=== PATIENT | female | born 1985 | race Caucasian/White ===

== ENCOUNTER 2024-05-16 11:01 | Emergency (ER) | payer OTHER, SELFPAY ==
--- NOTE | 2024-05-16 11:50 | ER ---
Nurse's Notes [facility] Name: Kelly Vega Age: 38 yrs Sex: Female : 1985 Arrival Date: 05/16/2024 Time: 11:01 Bed 16 Private MD: Diagnosis: Schizophrenia, unspecified Presentation: 05/16 11:10 Coronavirus screen: Client denies travel out of the [place] in the last 14 days. At this 1 time, the client does not indicate any symptoms associated with coronavirus-19. 11:10 Method Of Arrival: EMS: [facility] 11:21 Ebola Screen: Patient denies travel to an Ebola-affected area in the 21 days before 1 illness onset. Initial Sepsis Screen: Does the patient meet any 2 criteria? No. Patient's initial sepsis screen is negative. Does the patient have a suspected source of infection? No. Patient's initial sepsis screen is negative. 11:28 Chief complaint: Patient states: Dehydrated, no place to stay, got our of residential ll1 (November), SOB with exertion, fatigue off/on since November. Denies SI/HI, but states she sees and hears people that aren't there. Risk Assessment: Do you want to hurt yourself or someone else? Patient reports no desire to harm self or others. Onset of symptoms was November 24, 2023. 11:28 Acuity: SUSHILA 3 ll1 Triage Assessment: 11:22 General: Appears uncomfortable, Behavior is calm, cooperative, appropriate for age, ll1 Reports anxiety SOB after walking for an hour. Pain: Denies pain. Neuro: No deficits noted. Historical: - Allergies: 11:31 "psychotropic drugs"; ll1 - PMHx: 11:09 Hypertensive disorder; ll1 11:31 Seizure; Hypothyroidism; Migraine; ll1 - PSHx: 11:31 None; ll1 - Immunization history:: Adult Immunizations up to date. - Infectious Disease History:: Denies. - Social history:: Smoking status: Patient reports the use of cigarette tobacco products, denies chronic smoking, but will smoke occasionally, Reported history of juuling and/or vaping. Screenin:30 [facility] ED Fall Risk Assessment (Adult) History of falling in the last 3 months, db including since admission No falls in past 3 months (0 pts) Confusion or Disorientation No (0 pts) Intoxicated or Sedated No (0 pts) Impaired Gait No (0 pts) Mobility Assist Device Used No (0 pt) Altered Elimination No (0 pt) Score/Fall Risk Level 0 - 2 = Low Risk Oriented to surroundings, Maintained a safe environment. Abuse screen: Denies threats or abuse. Denies injuries from another. Nutritional screening: No deficits noted. Tuberculosis screening: No symptoms or risk factors identified. Assessment: 11:30 Reassessment: Patient appears in no apparent distress at this time. Patient and/or db family updated on plan of care and expected duration. Pain level reassessed. Patient is alert, oriented x 3, equal unlabored respirations, skin warm/dry/pink. General: Appears in no apparent distress. comfortable, Behavior is cooperative, agitated. Pain: Denies pain. Neuro: Level of Consciousness is awake, alert, obeys commands, Oriented to person, place, time, situation. Cardiovascular: No deficits noted. Respiratory: Airway is patent Respiratory effort is even, unlabored, Respiratory pattern is regular, symmetrical. GI: No deficits noted. No signs and/or symptoms were reported involving the gastrointestinal system. Vital Signs: 11:28 BP 142 / 69; Pulse 119; Resp 17; Temp 97.2; Pulse Ox 97% ; Weight 113.4 kg; Height 5 ll1 ft. 8 in. ; 11:28 Body Mass Index 38.01 (113.40 kg, 172.72 cm) ll1 ED Course: 11:03 Patient arrived in ED. im 11:05 Arm band placed on. ll1 11:07 [facility] sb[facility] 11:07 Sang Reece MD is Attending Physician. sb4 11:30 Patient has correct armband on for positive identification. Bed in low position. Call db light in reach. Side rails up X 1. Provided Education on: DISCHARGE. 11:30 No provider procedures requiring assistance completed. Patient did not have IV access db during this emergency room visit. 11:31 Triage completed. ll1 11:39 Patient placed in an exam room, on a stretcher. ll1 11:50 Pool Kearney MD is Referral Physician. sb4 Administered Medications: No medications were administered Medication: 11:30 VIS not applicable for this client. db Outcome: 11:50 Discharge ordered by MD. sherman 12:00 Discharged to home ambulatory, db 12:00 Condition: stable 12:00 Discharge instructions given to patient, Instructed on discharge instructions, follow up and referral plans. 12:08 Patient left the ED. Signatures: Karen Keane RN RN Ferdinand Sidhu RN RN ll1 Shonda Elliott RN RN db Radha Davis, PASerenaC PASerenaC sb4 Emily Pugh Corrections: (The following items were deleted from the chart) 11:41 11:28 Chief complaint: Patient states: Dehydrated, no place to stay, got our of residential ll1 (November), SOB with exertion, fatigue off/on since November ll1 13:05 11:30 Discharged to home ambulatory, db db 13:05 11:30 Condition: stable db db 13:05 11:30 Discharge instructions given to patient, Instructed on discharge instructions, db follow up and referral plans. db
--- NOTE | 2024-05-16 11:51 | EDPHYS ---
Physician Documentation [facility] Name: Kelly Vega Age: 38 yrs Sex: Female : 1985 Arrival Date: 05/16/2024 Time: 11:01 Bed 16 Private MD: ED Physician Sang Reece HPI: 05/16 11:48 This 38 yrs old Female presents to ER via EMS with complaints of psych problem. sb4 15:32 Patient presents via EMS with vague complaints. Apparently, patient was found wandering sb4 on someone's property. The home deputy assessor called PD and trespassing warning was given to her. She apparently appeared dehydrated and short of breath so they brought her in for evaluation. She is uncooperative, not answering my questions, experiencing auditory hallucinations during my assessment. She denies any suicidal or homicidal ideations. Historical: - Allergies: 11:31 "psychotropic drugs"; ll1 - PMHx: 11:09 Hypertensive disorder; ll1 11:31 Seizure; Hypothyroidism; Migraine; ll1 - PSHx: 11:31 None; ll1 - Immunization history:: Adult Immunizations up to date. - Infectious Disease History:: Denies. - Social history:: Smoking status: Patient reports the use of cigarette tobacco products, denies chronic smoking, but will smoke occasionally, Reported history of juuling and/or vaping. ROS: 15:32 Unable to obtain ROS due to patient being uncooperative, sb4 Exam: 15:32 Head/Face: Normocephalic, atraumatic. Eyes: Extra-ocular motions intact. Periorbital sb4 areas with no swelling, redness, or edema. ENT: Mucous membranes moist. 15:32 Constitutional: The patient appears in no acute distress, alert, awake, 15:32 Neuro: Gait: is steady, appropriate for age, 15:32 Psych: Behavior/mood is aggressive, Patient has no thoughts/intents to harm self or others. Judgement / Insight is impaired. Delusions/hallucinations are present and described as Speaking to a friend named "Gabriela "and saying "I am God ". Vital Signs: 11:28 BP 142 / 69; Pulse 119; Resp 17; Temp 97.2; Pulse Ox 97% ; Weight 113.4 kg; Height 5 ll1 ft. 8 in. ; 11:28 Body Mass Index 38.01 (113.40 kg, 172.72 cm) ll1 MDM: 11:07 Patient medically screened. sb4 15:34 Data reviewed: vital signs, nurses notes, and as a result, I will discharge patient. sb4 Counseling: I had a detailed discussion with the patient and/or guardian regarding the historical points, exam findings, and any diagnostic results supporting the discharge/admit diagnosis, to return to the emergency department if symptoms worsen or persist or if there are any questions or concerns that arise at home. Administered Medications: No medications were administered Disposition: 15:34 Chart complete. sb4 18:28 Co-signature as Attending Physician, Sang Reece MD I reviewed the patient's care rt provided by the Advanced Practice Provider and agree with the diagnosis and treatment plan. Disposition Summary: 05/16/24 11:50 Discharge Ordered Notes: Location: Home sb4 Problem: new sb4 Symptoms: are unchanged sb4 Condition: Stable sb4 Diagnosis - Schizophrenia, unspecified sb4 Followup: sb4 - With: Pool Kearney MD - When: As needed - Reason: Recheck today's complaints, Re-evaluation by your physician Discharge Instructions: - Discharge Summary Sheet sb4 - Managing Schizophrenia sb4 Forms: - Patient Portal Instructions sb4 - Leadership Thank You Letter sb4 Signatures: Ferdinand Sidhu RN RN ll1 Radha Davis PA-C PA-C sb4 Sang Reece MD MD rt
== END 2024-05-16 12:08 | disposition home or self-care (01) ==
LOC: ER 11:01
DX: F20.9 Schizophrenia, unspecified (principal)
CPT/HCPCS: 99283

== ENCOUNTER 2024-05-16 14:07 | Emergency (ER) | payer SELFPAY ==
[2024-05-16 15:44] LABS: Absolute Basophils 0.1 K/uL (0-0.5); Absolute Lymphocytes (CBC) 1.3 K/uL (0.7-4.9); Absolute Monocytes 1.1 K/uL (0.1-1.3); Absolute Neutrophil 10.2 K/uL (1.8-8.0); Basophils % 0.4 % (0-1.3); Eosinophils % 0.2 % (0-4.4); Hematocrit 50.7 % (36.0-45.0); Hemoglobin 16.6 g/dL (12.0-15.0); Lymphocytes % 10.5 % (15.3-44.8); MCH 29.7 pg (27.0-35.0); MCHC 32.7 g/dL (32.0-36.0); MCV 90.7 fL (80-100); MPV 8.8 fL (7.6-11.3); Monocytes % 8.5 % (3.3-12.3); Neutrophils % 80.4 % (41.7-73.7); Platelets 253 thou/uL (152-406); RBC Red Blood Cell Count 5.59 M/uL (3.86-4.86); Red Cell Distribution Width 14.2 % (12.1-15.2)
[2024-05-16 15:46] LABS: Specific Gravity > 1.030 (1.005-1.030); Urine Bacteria 20-50 /HPF (<20); Urine Bilirubin 1+ (Negative); Urine Blood Negative (Negative); Urine Clarity Extremely Turbid (Clear); Urine Color Yellow (Yellow); Urine Culture Reflex Order NOT NEEDED; Urine Glucose TRACE (Negative); Urine Ketones 2+ (Negative); Urine Microscopic Reflex YN ORDER UMIC; Urine Mucus 3+ /HPF (None Seen); Urine Nitrite NEGATIVE (Negative); Urine Protein 2+ (Negative); Urine RBC None Seen /HPF (None Seen); Urine Urobilinogen 1+ (Normal); Urine WBC None Seen /HPF (<5); Urine pH 5.5 (5.0-7.0)
[2024-05-16 15:47] LABS: Protime INR 1.09
[2024-05-16 15:47] LABS: Barbiturates POSITIVE (NEGATIVE); Benzodiazepines NEGATIVE (NEGATIVE); Cocaine NEGATIVE (NEGATIVE); METHAMPHETAM POSITIVE (NEGATIVE); Methadone NEGATIVE (NEGATIVE); Opiates NEGATIVE (NEGATIVE); Phencyclidine NEGATIVE (NEGATIVE); Specific Gravity > 1.030 (1.005-1.030); THC Cannibis POSITIVE (NEGATIVE)
[2024-05-16 15:48] LABS: ALT/SGPT 33 U/L (13-56); AST/SGOT 14 U/L (15-37); Albumin 4.4 g/dL (3.4-5.0); Alkaline Phosphatase 72 U/L (45-117); Anion Gap 13.8 mEq/L (5.0-15.0); BUN Blood Urea Nitrogen 16 mg/dL (7-18); Bicarbonate 24 mEq/L (21-32); Bilirubin Direct 0.3 mg/dL (0-0.2); Bilirubin Indirect, Calculated 0.6 mg/dL (0.2-0.8); Bilirubin Total 0.9 mg/dL (0.2-1.0); Globulin 4.2 g/dL (2.3-3.5); Glomerular Filtration Rate 39 ml/min (=/>90); Glucose Level 78 mg/dL (74-106); Potassium 3.8 mEq/L (3.5-5.1); Protein, Total 8.6 g/dL (6.4-8.2); Sodium Level 135 mEq/L (136-145)
[2024-05-16] MEDS ORDERED: CEPHALEXIN 250 MG CAP ONE (17:33)
--- NOTE | 2024-05-16 20:09 | ER ---
Nurse's Notes [facility] Name: Kelly Vega Age: 38 yrs Sex: Female : 1985 Arrival Date: 05/16/2024 Time: 14:07 Bed 20 Private MD: Diagnosis: Suicidal ideations;UTI/ Urinary tract infection, site not specified Presentation: 05/16 14:26 Chief complaint: Patient states: Abdominal pain and vaginal leaking for 4 days. Still ll1 has same symptoms of last visit this morning also; dehydration, SOB with exertion, fatigue, and being homeless. Hearing and seeing people that aren't there. Denies SI/HI. Coronavirus screen: Client denies travel out of the [place] in the last 14 days. At this time, the client does not indicate any symptoms associated with coronavirus-19. Ebola Screen: Patient denies travel to an Ebola-affected area in the 21 days before illness onset. Initial Sepsis Screen: Does the patient meet any 2 criteria? No. Patient's initial sepsis screen is negative. Does the patient have a suspected source of infection? No. Patient's initial sepsis screen is negative. Risk Assessment: Do you want to hurt yourself or someone else? Patient reports no desire to harm self or others. Onset of symptoms was May 02, 2024. 14:26 Method Of Arrival: Ambulatory [facility] 14:26 Acuity: SUSHILA 3 [facility] Triage Assessment: 14:32 General: Appears distressed, uncomfortable, Behavior is cooperative, appropriate for ll1 age, anxious. General: Reports seeing and hearing people that aren't there. Pain: Denies pain. Respiratory: Reports cough that is. : Reports cramping, vaginal "leaking". 14:54 GI: Reports lower abdominal pain, cramping. [facility] NEUROLOGY STROKE PHYSICIAN: 17:12 LMP N/A - , Not mb9 Historical: - Allergies: 14:28 "psychotropic drugs"; ll1 - PMHx: 14:28 Hypertensive disorder; Hypothyroidism; Migraine; Seizure; ll1 - Immunization history:: Adult Immunizations up to date. - Infectious Disease History:: Denies. - Social history:: Smoking status: Patient reports the use of cigarette tobacco products, denies chronic smoking, but will smoke occasionally, Reported history of juuling and/or vaping. - Family history:: not pertinent. Screenin:15 [facility] ED Fall Risk Assessment (Adult) History of falling in the last 3 months, kc6 including since admission No falls in past 3 months (0 pts) Confusion or Disorientation No (0 pts) Intoxicated or Sedated No (0 pts) Impaired Gait No (0 pts) Mobility Assist Device Used No (0 pt) Altered Elimination No (0 pt) Score/Fall Risk Level 0 - 2 = Low Risk. Abuse screen: Denies threats or abuse. Denies injuries from another. Nutritional screening: No deficits noted. Tuberculosis screening: No symptoms or risk factors identified. Assessment: 15:15 General: Appears in no apparent distress. comfortable, well groomed, well developed, kc6 Behavior is calm, cooperative, appropriate for age. Pain: Denies pain. Neuro: Level of Consciousness is awake, alert, obeys commands, Oriented to person, place, time, situation, Appropriate for age. Cardiovascular: Capillary refill < 3 seconds. Respiratory: Airway is patent Trachea midline Respiratory effort is even, unlabored, Respiratory pattern is regular, symmetrical. GI: No signs and/or symptoms were reported involving the gastrointestinal system. : No signs and/or symptoms were reported regarding the genitourinary system. EENT: No signs and/or symptoms were reported regarding the EENT system. Derm: No signs and/or symptoms reported regarding the dermatologic system. Skin is intact, is healthy with good turgor, Skin is pink, warm \\T\\ dry. Musculoskeletal: No signs and/or symptoms reported regarding the musculoskeletal system. Circulation, motion, and sensation intact. Capillary refill < 3 seconds, Range of motion: intact in all extremities. 15:15 Reassessment: pt states she is having auditory and visual hallucinations. pt states she kc6 is having SI, and that she has been using street drugs, taking pills, and drinking. pt denies HI. Dr. Reece and charge nurse notified. 15:15 Reassessment:. kc6 15:20 Reassessment: sitter remains at bedside. kc6 16:38 Reassessment: SI precautions in place. Sitter at bedside. Report received from jennifer Molina RN. 17:38 Reassessment: Patient appears in no apparent distress at this time. SI precautions in mb9 place. Sitter at bedside. 18:38 Reassessment: Patient appears in no apparent distress at this time. Patient is alert, mb9 oriented x 3, equal unlabored respirations, skin warm/dry/pink. SI precautions in place. Sitter at bedside. 19:38 Reassessment: Patient appears in no apparent distress at this time. Patient is alert, mb9 oriented x 3, equal unlabored respirations, skin warm/dry/pink. SI precautions in place. Sitter at bedside. Airway is patent, Respirations are even and unlabored. 20:38 Reassessment: Patient appears in no apparent distress at this time. SI precautions in mb9 place. Sitter at bedside. Airway is patent, Respirations are even and unlabored. 21:38 Reassessment: Patient appears in no apparent distress at this time. Patient is alert, mb9 oriented x 3, equal unlabored respirations, skin warm/dry/pink. SI precautions in place. Sitter at bedside. Airway is patent, Respirations are even and unlabored. 22:00 General: Appears comfortable, Behavior is calm, cooperative. Neuro: Level of ha1 Consciousness is awake, alert, obeys commands, Oriented to person, place, time, situation, Reports Suicidal ideations . Cardiovascular: Patient's skin is warm and dry. Respiratory: Airway is patent Respiratory effort is even, unlabored, Respiratory pattern is regular, symmetrical. 22:15 Reassessment: eyes closed. Respiratory: Airway is patent Respiratory effort is even, ha1 unlabored, Respiratory pattern is regular, symmetrical. 23:34 Reassessment: eyes closed. Respiratory: Airway is patent Respiratory effort is even, ha1 unlabored, Respiratory pattern is regular, symmetrical. 05/17 01:03 Reassessment: Patient and/or family updated on plan of care and expected duration. Pain ha1 level reassessed. Patient is alert, oriented x 3, equal unlabored respirations, skin warm/dry/pink. 02:00 Reassessment: eyes closed. Respiratory: Airway is patent Respiratory effort is even, ha1 unlabored, Respiratory pattern is regular, symmetrical. 04:00 Reassessment: eyes closed. Respiratory: Airway is patent Respiratory effort is even, ha1 unlabored, Respiratory pattern is regular, symmetrical. 06:00 Reassessment: eyes closed. Respiratory: Airway is patent Respiratory effort is even, ha1 unlabored, Respiratory pattern is regular, symmetrical. 07:37 Reassessment: Pt asleep w/ even and unlabored respirations, nurse to nurse report given ph to Lottie at [facility]. 08:53 Reassessment: Patient appears in no apparent distress at this time. Patient and/or ph family updated on plan of care and expected duration. Pain level reassessed. Patient is alert, oriented x 3, equal unlabored respirations, skin warm/dry/pink. [facility] at bedside. Psych: 05/16 15:15 [place] Suicide Severity Screening: In the past month, have you wished you were kc6 or wished you could go to sleep and not wake up? Patient responds "yes." Based off the client's responses additional C-SSRS screening is required. "In the past month, have you actually had any thoughts of killing yourself?" Patient responds "yes." Based off the client's response additional [place] suicide severity screening questions to be further documented on paper forms. "In your lifetime, have you ever done anything, started to do anything, or prepared to do anything to end your life?" Patient responds "yes." Patient reports suicidal intent within 3 past months. Subjective: Delusions are denied. Subjective: Patient's mood is angry, Hallucinations are auditory, visual, Having thoughts of suicide. Plan for suicide is taking pills, doing street drugs, and drinking. Objective: Patient is irritable, using poor eye contact, Speech is normal, Affect is flat. Interventions: Removed personal items and placed in bag. Searched person for dangerous items. Urine collected and sent for urine drug test. Belonging list filled out. Patient uses Patient uses marijuana Patient uses methamphetamines. Commitment: Patient will be a voluntary commitment. 16:30 Safety Checks: Personal items have been removed. Door is open. SI precautions in place. mb9 Sitter at bedside. Vital Signs: 14:26 BP 115 / 81; Pulse 122; Resp 18; Temp 97.5; Pulse Ox 98% ; Weight 113.4 kg; Height 5 ll1 ft. 8 in. ; Pain 0/10; 15:15 Pulse 105; kc6 22:15 BP 116 / 82; Pulse 95; Resp 17 S; Pulse Ox 97% on R/A; ha1 05/17 09:00 BP 115 / 78; Pulse 90; Resp 20; Temp 98.1; Pulse Ox 98% ; Pain 0/10; kb3 06/23 14:26 Body Mass Index 38.01 (113.40 kg, 172.72 cm) ll1 05/16 14:26 Pain Scale: Adult ll1 05/17 09:00 Pain Scale: Adult kb3 ED Course: 05/16 14:12 Patient arrived in ED. im 14:28 Triage completed. ll1 14:29 Arm band placed on Patient placed in an exam room, on a stretcher. ll1 14:34 Sang Reece MD is Attending Physician. rt 15:15 Patient has correct armband on for positive identification. Bed in low position. Call kc6 light in reach. Side rails up X2. Valuables inventory done. Locked in safe. See valuables checklist. Door closed. Noise minimized. Visitors limited. Lights dimmed. Warm blanket given. Pillow given. Patient is placed in psych hold. 15:15 Initial lab(s) drawn, by me, sent to lab. Inserted saline lock: 20 gauge in left zm antecubital area, using aseptic technique. Blood collected. 15:15 Acetaminophen Sent. zm 15:15 Basic Metabolic Panel Sent. zm 15:15 CBC with Diff Sent. zm 15:15 ETOH Level Sent. zm 15:15 Hepatic Function Sent. zm 15:15 PT-INR Sent. zm 15:15 Test, Urine Sent. zm 15:15 Ptt, Activated Sent. zm 15:15 Salicylate Sent. zm 15:20 Safety Checks: The door is open or patient has been placed in a hallway bed/chair. kc6 Items have not been removed from patient due to or because: PT IS IN A TRAUMA ROOM. There are no family/friend visitors at this time Sitter present at this time. 15:49 Tracy Hodges, RN is Primary Nurse. kc6 16:50 Report given to Angy Raman RN. kc6 17:11 No provider procedures requiring assistance completed. mb9 17:12 Provided Education on: ER process and need for a sitter present. jennifer 17:15 called [facility] for evaluation of pt. sp 17:16 talked to Sasha with [facility]. sp 22:00 Report given to JOHN Sandra. jennifer 23:04 spoke with otf \\Shanta\\ don psych. will fax exclusionary form and mar. kmf 05/17 01:00 Door closed. Noise minimized. Lights dimmed. Warm blanket given. ha1 08:55 IV discontinued, intact, bleeding controlled, No redness/swelling at site. kb3 Administered Medications: 05/16 17:37 Drug: Cephalexin PO 500 mg PO once Route: PO; mb9 05/17 00:56 Drug: Cephalexin PO 500 mg PO every 6 hours Route: PO; ha1 Medication: 05/16 17:12 VIS not applicable for this client. mb9 Outcome: 20:08 ER care complete, transfer ordered by . rt 05/17 08:53 Transferred by ground EMS [facility]. Transfer form completed. Note: to [facility] Behavior[facility] Condition: good 09:03 Patient left the ED. ph Signatures: Mercy Amado Patricia RN RN ph Ferdinand Sidhu RN RN ll1 Jyothi De La Cruz Heidy, RN RN ha1 Tracy Hodges RN RN kc6 Gertrudis Elena RN RN kb3 Ara Saldaña RN RN mb9 Sang Reece MD MD rt Emily Pugh Kelsey [facility] Corrections: (The following items were deleted from the chart) 05/16 14:30 14:26 Chief complaint: Patient states: Chest hurting, coughing for 2 weeks. Pain and ll1 vaginal leaking for 4 days. Still has same symptoms of last visit this morning also. ll1 14:32 14:26 Chief complaint: Patient states: Chest hurting, coughing for 2 weeks. Pain and ll1 vaginal leaking for 4 days. Still has same symptoms of last visit this morning also. Hearing and seeing people that aren't there. Denies SI/HI ll1 14:54 14:32 Respiratory: Reports cough that is ll1 ll1 14:57 14:26 Chief complaint: Patient states: Abdominal pain and vaginal leaking for 4 days. ll1 Still has same symptoms of last visit this morning also. Hearing and seeing people that aren't there. Denies SI/HI ll1 15:55 15:15 Reassessment: pt states she is having auditory and visual hallucinations. pt kc6 states she is having SI, and that she has been using street drugs, taking pills, and drinking. pt denies HI. Dr. Reece and charge nurse notified kc6 16:17 15:20 Reassessment: FOR SAFETY REASONS, PT WILL BE MOVED TO AN APPROPRIATE ROOM WHEN kc6 ONE BECOMES AVAILABLE. kc6 18:36 16:38 Reassessment: SI precautions in place. Sitter at bedside. mb9 mb9
--- NOTE | 2024-05-16 20:09 | EDPHYS ---
Physician Documentation [facility] Name: Kelly Vega Age: 38 yrs Sex: Female : 1985 Arrival Date: 05/16/2024 Time: 14:07 Bed 20 Private MD: ED Physician Sang Reece HPI: 05/16 17:32 This 38 yrs old Female presents to ER via Ambulatory with complaints of Psych Problem. rt 17:32 Patient was seen in the ED earlier today, refused to speak to PA, subsequently rt discharged. Patient returns to the ED, she was stated that she could not walk, but, she did not mention this to me. Patient was walking into the hospital. Patient states that she sees ghosts, reported to her nurse that she had thoughts of hurting herself. Patient reports of burning with urination. Denies other acute complaints at this time, symptoms are moderate in severity, no other aggravating or alleviating factors.. 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 - Infectious Disease History:: Denies. - Social history:: Smoking status: Patient reports the use of cigarette tobacco products, denies chronic smoking, but will smoke occasionally, Reported history of juuling and/or vaping. - Family history:: not pertinent. ROS: 17:32 Constitutional: Negative for fever, chills, and weight loss, Cardiovascular: Negative rt for chest pain, palpitations, and edema, Respiratory: Negative for shortness of breath, cough, wheezing, and pleuritic chest pain, Abdomen/GI: Negative for abdominal pain, nausea, vomiting, diarrhea, and constipation, Skin: Negative for injury, rash, and discoloration, Neuro: Negative for headache, weakness, numbness, tingling, and seizure, 17:32 : Positive for burning with urination, Negative for vaginal bleeding, 17:32 Psych: Positive for visual hallucinations, suicidal ideation, Exam: 17:32 Constitutional: This is a well developed, well nourished patient who is awake, alert, rt and in no acute distress. Head/Face: Normocephalic, atraumatic. Chest/axilla: Normal chest wall appearance and motion. Nontender with no deformity. No lesions are appreciated. Cardiovascular: Regular rate and rhythm with a normal S1 and S2. No gallops, murmurs, or rubs. Normal PMI, no JVD. No pulse deficits. Respiratory: Lungs have equal breath sounds bilaterally, clear to auscultation and percussion. No rales, rhonchi or wheezes noted. No increased work of breathing, no retractions or nasal flaring. Abdomen/GI: Soft, non-tender, with normal bowel sounds. No distension or tympany. No guarding or rebound. No evidence of tenderness throughout. Skin: Warm, dry with normal turgor. Normal color with no rashes, no lesions, and no evidence of cellulitis. MS/ Extremity: Pulses equal, no cyanosis. Neurovascular intact. Full, normal range of motion. Neuro: Awake and alert, GCS 15, oriented to person, place, time, and situation. Cranial nerves II-XII grossly intact. Motor strength 5/5 in all extremities. Sensory grossly intact. Cerebellar exam normal. Normal gait. 17:32 ECG was reviewed by the Attending Physician. 17:32 Psych: Disorganized, appears to be responding to internal stimuli, reported suicidal ideation. Vital Signs: 14:26 BP 115 / 81; Pulse 122; Resp 18; Temp 97.5; Pulse Ox 98% ; Weight 113.4 kg; Height 5 ll1 ft. 8 in. ; Pain 0/10; 15:15 Pulse 105; kc6 22:15 BP 116 / 82; Pulse 95; Resp 17 S; Pulse Ox 97% on R/A; ha1 05/17 09:00 BP 115 / 78; Pulse 90; Resp 20; Temp 98.1; Pulse Ox 98% ; Pain 0/10; kb3 05/16 14:26 Body Mass Index 38.01 (113.40 kg, 172.72 cm) ll1 05/16 14:26 Pain Scale: Adult ll1 05/17 09:00 Pain Scale: Adult kb3 MDM: 05/16 14:52 Patient medically screened. rt 20:09 Differential diagnosis: Acute psychosis, suicidal ideation, UTI. Data reviewed: vital rt signs, nurses notes, lab test result(s), EKG. Consideration of Admission/Observation Escalation of care including admission/observation considered. Patient requires transfer for psychiatric stabilization. Patient was noted with elevated creatinine, likely due to dehydration with methamphetamine use. Is amenable to p.o. hydration. Patient does not require admission to the hospital for this.. Management of patient was discussed with the following: Behavioral Health Provider: Recommends inpatient hospitalization. I considered the following discharge prescriptions or medication management in the emergency department Medications were administered in the Emergency Department. See MAR. Care significantly affected by the following chronic conditions: Schizophrenia. Counseling: I had a detailed discussion with the patient and/or guardian regarding the historical points, exam findings, and any diagnostic results supporting the discharge/admit diagnosis, lab results, the need to transfer to another facility. Response to treatment: There is no appreciated change of the patient's symptoms at this time. 05/16 15:01 Order name: Acetaminophen; Complete Time: 16:18 rt 05/16 15:01 Order name: Basic Metabolic Panel; Complete Time: 16:18 rt 05/16 15:01 Order name: CBC with Diff; Complete Time: 16:18 rt 05/16 15:01 Order name: ETOH Level; Complete Time: 16:18 rt 05/16 15:01 Order name: Hepatic Function; Complete Time: 16:18 rt 05/16 15:01 Order name: PT-INR; Complete Time: 16:18 rt 05/16 15:01 Order name: Test, Urine; Complete Time: 16:18 rt 05/16 15:01 Order name: Ptt, Activated; Complete Time: 16:18 rt 05/16 15:01 Order name: Salicylate; Complete Time: 16:18 rt 05/16 15:01 Order name: Urinalysis w/ reflexes; Complete Time: 16:18 rt 05/16 15:01 Order name: Urine Drug Screen; Complete Time: 16:18 rt 05/16 15:01 Order name: EKG; Complete Time: 15: rt 05/16 15:01 Order name: IV Saline Lock; Complete Time: 15:14 rt 05/16 15:01 Order name: Labs collected and sent; Complete Time: 15:14 rt 05/16 15:01 Order name: Suicide Screening ([place]); Complete Time: 15:14 rt 05/16 15:01 Order name: EKG - Nurse/Tech; Complete Time: 15:14 rt EC:32 Rate is 102 beats/min. Rhythm is regular, Sinus tachycardia with No ectopy. QRS [place] is rt Normal. CA interval is normal. QRS interval is normal. QT interval is normal. T waves are Normal. No ST changes noted. Interpreted by me. Administered Medications: 17:37 Drug: Cephalexin PO 500 mg PO once Route: PO; mb9 05/17 00:56 Drug: Cephalexin PO 500 mg PO every 6 hours Route: PO; ha1 Disposition Summary: 05/16/24 20:08 Transfer Ordered Notes: Transfer Location: Psych Facility rt Reason: Specialty rt Condition: Stable rt Problem: new rt Symptoms: are unchanged rt Accepting Physician: (05/17/24 09:03) ph Diagnosis - Suicidal ideations rt - UTI/ Urinary tract infection, site not specified rt Discharge Instructions: - Discharge Summary Sheet kmf Forms: - Medication Reconciliation Form rt - SBAR form kmf Signatures: Dispatcher [employer] EDMariah Lassiter RN RN ph Lewis, Lynsay RN RN 1 Jocy Sampson RN RN [facility] Ara Saldaña RN RN [id number] Sang Reece MD MD rt Corrections: (The following items were deleted from the chart) 05/16 15:01 15:01 ACETAMINOPHEN+C.LAB.BRZ ordered. EDMS EDMS 15:01 15:01 BASIC METABOLIC PANEL+C.LAB.BRZ ordered. EDMS EDMS 15:01 15:01 CBC+H.LAB.BRZ ordered. EDMS EDMS 15:01 15:01 ETHANOL+C.LAB.BRZ ordered. EDMS EDMS 15:01 15:01 HEPATIC FUNCTION+C.LAB.BRZ ordered. EDMS EDMS 15:01 15:01 PROTIME (+INR)+COAG.LAB.BRZ ordered. EDMS EDMS 15:01 15:01 Test, Urine+UC.LAB.BRZ ordered. EDMS EDMS 15:01 15:01 PTT, ACTIVATED+COAG.LAB.BRZ ordered. EDMS EDMS 15:01 15:01 SALICYLATE+C.LAB.BRZ ordered. EDMS EDMS 15:01 15:01 Urinalysis+U.LAB.BRZ ordered. EDMS EDMS 15:01 15:01 URINE DRUG SCREEN+UC.LAB.BRZ ordered. EDMS EDMS 20:08 20:08 . rt rt 05/17 09:03 05/16 20:08 Dr. rt ph
[2024-05-17] MEDS ORDERED: CEPHALEXIN 250 MG CAP ONE (00:50)
--- NOTE | 2024-05-17 13:05 | EKG ---
Test Date: 2024-05-16 Test Time: 15:11:40 Disc Recordist: NAYA MEASUREMENT RESULTS: Intervals: Rate: 102 WA: 164 QRSD: 72 QT: 350 QTc: 456 [place]: P: 60 WA: 164 QRS: 53 T: 27 INTERPRETIVE STATEMENTS: Sinus tachycardia Otherwise normal ECG Compared to ECG 04/16/2008 09:21:26 Sinus rhythm no longer present Prolonged QT interval no longer present Electronically Signed On 05-17-24 13:03:02 CDT by Anson Mak
[2024-05-17 17:49] VITALS: BP 116/82; TEMP 97.5; O2SAT 97
== END 2024-05-17 09:03 ==
LOC: ER 14:07
DX: R45.851 Suicidal ideations (principal); N39.0 Urinary tract infection, site not specified
CPT/HCPCS: 36415; 80048; 80076; 80143; 80179; 80307; 81001; 81025; 82077; 85025; 85610; 85730; 93005

== ENCOUNTER 2024-12-05 07:09 | Emergency (ER) | payer OTHER, SELFPAY ==
[2024-12-05] MEDS ORDERED: NA CHLORIDE 0.9% 500 ML ONE (07:45)
[2024-12-05 08:00] LABS: Absolute Basophils 0.1 K/uL (0-0.5); Absolute Lymphocytes (CBC) 1.5 K/uL (0.7-4.9); Absolute Monocytes 1.2 K/uL (0.1-1.3); Absolute Neutrophil 4.4 K/uL (1.8-8.0); Basophils % 0.9 % (0-1.3); Eosinophils % 0.3 % (0-4.4); Hematocrit 41.6 % (36.0-45.0); Hemoglobin 13.8 g/dL (12.0-15.0); Lymphocytes % 21.1 % (15.3-44.8); MCH 29.8 pg (27.0-35.0); MCHC 33.2 g/dL (32.0-36.0); MCV 89.8 fL (80-100); Monocytes % 17.1 % (3.3-12.3); Neutrophils % 60.6 % (41.7-73.7); Nucleated Red Blood Cells % 0.1 % (0-0); Platelets 256 thou/uL (152-406); RBC Red Blood Cell Count 4.63 M/uL (3.86-4.86); Red Cell Distribution Width 13.1 % (12.1-15.2)
--- NOTE | 2024-12-05 08:09 | ER ---
Nurse's Notes [facility] Name: Kelly Vega Age: 39 yrs Sex: Female : 1985 Arrival Date: 12/05/2024 Time: 07:09 Bed 18 Private MD: Diagnosis: Suicidal ideations Presentation: 12/05 07:09 Chief complaint: EMS states: PT REPORTS TAKING A HAND 20 PILLS YESTERDAY OF A MIX OF db HER MEDICATIONS. TODAY FEELS OUT OF BODY. MEDICATIONS THAT REMEMBERS ARE AMOXICILLIN, COGENTIN, IBUPROFEN, TOPOMAX. HAVING THOUGHTS OF HURTING SELF BECAUSE WAS FRUSTRATED WITH TAKING HOME MEDS. FEELING SAD AND OVERWHELMED. WANTS HELP AND WANTS TO GO TO A FACILITY TODAY FOR HELP. 07:38 Coronavirus screen: Client denies travel out of the [place] in the last 14 days. At this db time, the client does not indicate any symptoms associated with coronavirus-19. Ebola Screen: Patient negative for fever greater than or equal to 101.5 degrees Fahrenheit, and additional compatible Ebola Virus Disease symptoms Patient denies exposure to infectious person. Patient denies travel to an Ebola-affected area in the 21 days before illness onset. No symptoms or risks identified at this time. Initial Sepsis Screen: Does the patient meet any 2 criteria? No. Patient's initial sepsis screen is negative. Does the patient have a suspected source of infection? No. Patient's initial sepsis screen is negative. Risk Assessment: Do you want to hurt yourself or someone else? Patient reports no desire to harm self or others. Onset of symptoms was December 04, 2024. 07:38 Method Of Arrival: EMS: [facility] db 07:38 Acuity: SUSHILA 2 db Triage Assessment: 07:09 General: Appears in no apparent distress. comfortable, Behavior is calm, cooperative. db Pain: Denies pain. Neuro: Level of Consciousness is awake, alert, obeys commands, Oriented to person, place, time, situation. Respiratory: Airway is patent Respiratory effort is even, unlabored, Respiratory pattern is regular, symmetrical. Historical: - Allergies: 07:42 Seroquel; db 07:42 Haldol; db 07:42 Depakote; db 07:42 Soma; db - PMHx: 07:42 Hypertensive disorder; Hypothyroidism; Migraine; Seizure; db - Immunization history:: Adult Immunizations unknown. - Infectious Disease History:: Denies. - Family history:: not pertinent. - Social history:: Smoking status: Patient reports the use of cigarette tobacco products, denies chronic smoking, but will smoke occasionally, Reported history of juuling and/or vaping. - Hospitalizations: : No recent hospitalization is reported. Screenin:58 [facility] ED Fall Risk Assessment (Adult) History of falling in the last 3 months, db including since admission No falls in past 3 months (0 pts) Confusion or Disorientation No (0 pts) Intoxicated or Sedated No (0 pts) Impaired Gait No (0 pts) Mobility Assist Device Used No (0 pt) Altered Elimination No (0 pt) Score/Fall Risk Level 0 - 2 = Low Risk Oriented to surroundings, Maintained a safe environment. Abuse screen: Denies threats or abuse. Denies injuries from another. Nutritional screening: No deficits noted. Tuberculosis screening: No symptoms or risk factors identified. Assessment: 07:57 Reassessment: Patient appears in no apparent distress at this time. Patient and/or db family updated on plan of care and expected duration. Pain level reassessed. Patient is alert, oriented x 3, equal unlabored respirations, skin warm/dry/pink. PATIENT AMBULATORY TO RESTROOM. 09:53 Reassessment: [place] [facility] [place] db 10:53 Reassessment: Patient appears in no apparent distress at this time. EMS ARRIVAL FOR db PATIENT TRANSPORT. SECURITY NOTIFIED TO BRING BACK PATIENT BELONGINGS. 10:53 Reassessment: Patient appears in no apparent distress at this time. db Psych: 07:10 [place] Suicide Severity Screening: In the past month, have you wished you were db or wished you could go to sleep and not wake up? Patient responds "yes." Based off the client's responses additional C-SSRS screening is required. "In the past month, have you actually had any thoughts of killing yourself?" Patient responds "yes." Based off the client's response additional [place] suicide severity screening questions to be further documented on paper forms. "In your lifetime, have you ever done anything, started to do anything, or prepared to do anything to end your life?" Patient responds "yes." Patient reports suicidal intent occurred greater than 3 months prior. Subjective: Patient's mood is sad. Subjective: Delusions are denied, Hallucinations are denied. Objective: Patient is cooperative, Speech is normal, Affect is appropriate. Interventions: Removed personal items and placed in bag. Patient placed in hospital gown. Searched person for dangerous items. Urine collected and sent for urine drug test. Belonging list filled out. Safety Checks: Personal items have been removed. Door is open. No visitors are present at this time. Pt denies substance abuse. Commitment: Patient will be a voluntary commitment. Vital Signs: 07:38 BP 119 / 78; Pulse 112; Resp 18; Temp 99.6; Pulse Ox 95% ; Weight 115.67 kg; Height 5 db ft. 8 in. ; 08:00 BP 118 / 85; Pulse 102; Resp 18; Pulse Ox 96% on R/A; db 09:00 BP 127 / 96; Pulse 93; Resp 20; Temp 98.8; Pulse Ox 96% on R/A; db 10:30 BP 103 / 70; Pulse 95; Resp 18; Pulse Ox 98% on R/A; db 07:38 Body Mass Index 38.77 (115.67 kg, 172.72 cm) db ED Course: 07:09 Arm band placed on Patient placed in an exam room. db 07:10 Patient arrived in ED. am2 07:11 Hitesh Bee MD is Attending Physician. rn 07:21 Shonda Elliott, JOHN is Primary Nurse. db 07:42 Triage completed. db 08:24 XRAY Chest (1 view) In Process Unspecified. EDMS 08:26 Patient has correct armband on for positive identification. Bed in low position. Call db light in reach. Side rails up X 1. Client placed on continuous cardiac and pulse oximetry monitoring. NIBP monitoring applied. quality assurance monitor chassis on. Pulse ox on. NIBP on. Warm blanket given. Pillow given. 08:27 Initial lab(s) drawn, by me, sent to lab. Urine collected: clean catch specimen, EKG cc6 done, by ED staff, reviewed by Hitesh Bee MD. Inserted saline lock: 20 gauge in right antecubital area, using aseptic technique. Blood collected. Flushed with 10 mL NS. 09:44 faxed demographics to [facility], [place]o [place]. sp 10:45 [facility] gave approval and nurse to nurse to Tanisha. [facility]. Greyson Strickland [id number] Called [facility] for transport talked to Anna. 10:53 Provided Education on: TRANSPORTATION TO [facility]. Patient is placed in psych db hold. 10:53 No provider procedures requiring assistance completed. IV discontinued, intact, db bleeding controlled, No redness/swelling at site. Administered Medications: 07:50 Drug: NS 0.9% IV 500 ml 500 ml IV at 1 bolus once; to be given as a bolus over 30 db minutes Volume: 500 ml; Route: IV; Rate: 1 bolus; Site: right antecubital; 08:17 Drug: Acetaminophen PO 650 mg PO once Route: PO; db 09:52 Follow up: Response: No adverse reaction db 09:38 Drug: Potassium Chloride PO 40 mEq PO once Route: PO; db Medication: 08:26 VIS not applicable for this client. db Outcome: 08:09 Discharge ordered by MD. rn 08:10 ER care complete, transfer ordered by MD. rn 10:53 Transferred by ground EMS Transfer form completed. X-rays sent w/ patient. Note: [facility] 10:53 Condition: stable 10:53 Instructed on the need for transfer, 11:14 Patient left the ED. iw Signatures: Dispatcher [employer] EDMS Mercy Amado Irene, RN RN iw Hitesh Bee MD MD rn Moreno, Amanda am2 Shonda Elliott RN RN db Miryam Hamilton cc6 Corrections: (The following items were deleted from the chart) 07:42 07:09 Chief complaint: EMS states: PT REPORTS TAKING A HAND 20 PILLS YESTERDAY OF A MIX db OF HER MEDICATIONS. db 09:59 09:00 BP 127 / 96; Pulse 93bpm; Resp 20bpm; Pulse Ox 96% RA; db db
--- NOTE | 2024-12-05 08:10 | EDPHYS ---
Physician Documentation [facility] Name: Kelly Vega Age: 39 yrs Sex: Female : 1985 Arrival Date: 12/05/2024 Time: 07:09 Bed 18 Private MD: ED Physician Hitesh Bee HPI: 12/05 07:31 This 39 yrs old Female presents to ER via Unassigned with complaints of Suicidal rn Ideation. 07:31 The patient presents to the emergency department with depression, over unknown rn circumstances, a history of a suicide gesture, where the patient took pills/medications, suicide ideation, and the patient has a plan. Onset: The symptoms/episode began/occurred at an unknown time. Severity of symptoms: At their worst the symptoms were moderate in the emergency department the symptoms are unchanged. The patient has experienced similar episodes in the past. Patient reports suicidal ideation and depression. Reports suicide attempts in the past. Took approximately 20 pills, her medication including antibiotics, Topamax, Cogentin. Patient does not know the amount or doses of each pill. Took them yesterday morning/afternoon.. Historical: - Allergies: 07:42 Seroquel; db 07:42 Haldol; db 07:42 Depakote; db 07:42 Soma; db - PMHx: 07:42 Hypertensive disorder; Hypothyroidism; Migraine; Seizure; db - Immunization history:: Adult Immunizations unknown. - Infectious Disease History:: Denies. - Family history:: not pertinent. - Social history:: Smoking status: Patient reports the use of cigarette tobacco products, denies chronic smoking, but will smoke occasionally, Reported history of juuling and/or vaping. - Hospitalizations: : No recent hospitalization is reported. ROS: 07:31 Constitutional: Negative for fever, chills, and weight loss, Cardiovascular: Negative rn for chest pain, palpitations, and edema, Respiratory: Negative for shortness of breath, cough, wheezing, and pleuritic chest pain, Abdomen/GI: Negative for abdominal pain, nausea, vomiting, diarrhea, and constipation, MS/Extremity: Negative for injury and deformity, Skin: Negative for injury, rash, and discoloration, Neuro: Negative for headache, weakness, numbness, tingling, and seizure, Exam: 07:31 Constitutional: This is a well developed, well nourished patient who is awake, alert, rn and in no acute distress. ENT: Dry mucous membranes Cardiovascular: Tachycardic, regular. No pulse deficits. Respiratory: No increased work of breathing, no retractions or nasal flaring. Abdomen/GI: Soft, non-tender MS/ Extremity: Pulses equal, no cyanosis. Neuro: Awake and alert, GCS 15 09:16 ECG was reviewed by the Attending Physician. rn Vital Signs: 07:38 BP 119 / 78; Pulse 112; Resp 18; Temp 99.6; Pulse Ox 95% ; Weight 115.67 kg; Height 5 db ft. 8 in. ; 08:00 BP 118 / 85; Pulse 102; Resp 18; Pulse Ox 96% on R/A; db 09:00 BP 127 / 96; Pulse 93; Resp 20; Temp 98.8; Pulse Ox 96% on R/A; db 10:30 BP 103 / 70; Pulse 95; Resp 18; Pulse Ox 98% on R/A; db 07:38 Body Mass Index 38.77 (115.67 kg, 172.72 cm) db MDM: 07:11 Medical Screening Exam initiated rn 07:37 Differential diagnosis: depression, Suicidal ideation. Data reviewed: vital signs, rn nurses notes. 08:08 Independent interpretation of the following test(s) in the Emergency Department X-Ray: rn My interpretation is Chest x-ray images negative for pneumonia or pneumothorax per my interpretation. Care significantly affected by the following chronic conditions: Hypertension. Counseling: I had a detailed discussion with the patient and/or guardian regarding the historical points, exam findings, and any diagnostic results supporting the discharge/admit diagnosis, lab results, radiology results, the need for outpatient follow up, to return to the emergency department if symptoms worsen or persist or if there are any questions or concerns that arise at home. Special discussion:. 08:08 ED course: Patient is voluntary for psychiatric transfer.. rn 12/05 07:18 Order name: Acetaminophen; Complete Time: 08: rn 12/05 07:18 Order name: Basic Metabolic Panel; Complete Time: : rn 12/05 07:18 Order name: CBC with Diff; Complete Time: 08:08 rn 12/05 07:18 Order name: ETOH Level; Complete Time: : rn 12/05 07:18 Order name: Hepatic Function; Complete Time: :21 rn 12/05 07:18 Order name: PT-INR; Complete Time: 08:21 rn 12/05 07:18 Order name: Test, Urine; Complete Time: 08:21 rn 12/05 07:18 Order name: Ptt, Activated; Complete Time: 08:21 rn 12/05 07:18 Order name: Salicylate; Complete Time: 09:07 rn 12/05 07:18 Order name: Urinalysis w/ reflexes; Complete Time: 08:21 rn 12/05 07:18 Order name: Urine Drug Screen; Complete Time: 09:20 rn 12/05 07:18 Order name: XRAY Chest (1 view); Complete Time: 09:07 rn 12/05 07:18 Order name: EKG - Nurse/Tech; Complete Time: 08:02 rn 12/05 07:18 Order name: IV Saline Lock; Complete Time: 08:02 rn 12/05 07:18 Order name: Labs collected and sent; Complete Time: 08:02 rn 12/05 07:18 Order name: Suicide Precautions; Complete Time: 08:02 rn 12/05 07:18 Order name: Suicide Screening ([place]); Complete Time: 08:02 rn EC:16 Rate is 110 beats/min. Rhythm is regular. QRS [place] is Normal. [place] interval is normal. rn QRS interval is normal. QT interval is normal. No Q waves. T waves are Normal. No ST changes noted. Clinical impression: Sinus tachycardia. Interpreted by me. Reviewed by me. Administered Medications: 07:50 Drug: NS 0.9% IV 500 ml 500 ml IV at 1 bolus once; to be given as a bolus over 30 db minutes Volume: 500 ml; Route: IV; Rate: 1 bolus; Site: right antecubital; 08:17 Drug: Acetaminophen PO 650 mg PO once Route: PO; db 09:52 Follow up: Response: No adverse reaction db 09:38 Drug: Potassium Chloride PO 40 mEq PO once Route: PO; db Disposition Summary: 12/05/24 08:10 Transfer Ordered Notes: Transfer Location: [facility] Facility rn Reason: Higher level of care rn Condition: Stable(12/05/24 08:10) rn Problem: an ongoing problem(12/05/24 08:10) rn Symptoms: are unchanged(12/05/24 08:10) rn Accepting Physician: (12/05/24 11:14) iw Diagnosis - Suicidal ideations(12/05/24 08:10) rn Forms: - Medication Reconciliation Form rn - SBAR form rn Signatures: Dispatcher [employer] Tanisha Oliveros, Hitesh Kruse RN, MD MD rn Benton, Danielle, JOHN jackson Corrections: (The following items were deleted from the chart) 07:18 07:18 ACETAMINOPHEN+C.LAB.BRZ ordered. EDMS EDMS 07:18 07:18 BASIC METABOLIC PANEL+C.LAB.BRZ ordered. EDMS EDMS 07:18 07:18 CBC+H.LAB.BRZ ordered. EDMS EDMS 07:18 07:18 ETHANOL+C.LAB.BRZ ordered. EDMS EDMS 07:18 07:18 HEPATIC FUNCTION+C.LAB.BRZ ordered. EDMS EDMS 07:18 07:18 PROTIME (+INR)+COAG.LAB.BRZ ordered. EDMS EDMS 07:18 07:18 Test, Urine+UC.LAB.BRZ ordered. EDMS EDMS 07:18 07:18 PTT, ACTIVATED+COAG.LAB.BRZ ordered. EDMS EDMS 07:18 07:18 SALICYLATE+C.LAB.BRZ ordered. EDMS EDMS 07:18 07:18 Urinalysis+U.LAB.BRZ ordered. EDMS EDMS 07:18 07:18 URINE DRUG SCREEN+UC.LAB.BRZ ordered. EDMS EDMS 07:19 07:19 Chest Single View+RAD.RAD.BRZ ordered. EDMS EDMS 08:10 08:09 Home rn rn 08:10 08:09 new rn rn 08:10 08:09 have improved rn rn 08:10 08:09 Stable rn rn 08:10 08:09 Suicidal ideations rn rn 11:14 08:10 Dr. john garza
[2024-12-05 08:14] LABS: Specific Gravity 1.022 (1.005-1.030)
[2024-12-05 08:17] LABS: Specific Gravity 1.022 (1.005-1.030); Sqamous Epithelial 20-50 /HPF (None Seen); Urine Bacteria <20 /HPF (<20); Urine Bilirubin NEGATIVE (Negative); Urine Blood Negative (Negative); Urine Clarity Extremely Turbid (Clear); Urine Color Yellow (Yellow); Urine Culture Reflex Order NOT NEEDED; Urine Glucose NEGATIVE (Negative); Urine Ketones 1+ (Negative); Urine Microscopic Reflex YN ORDER UMIC; Urine Mucus Slight /HPF (None Seen); Urine Nitrite NEGATIVE (Negative); Urine Protein TRACE (Negative); Urine RBC <5 /HPF (None Seen); Urine Urobilinogen Normal (Normal); Urine WBC <5 /HPF (<5); Urine pH 7.5 (5.0-7.0)
[2024-12-05 08:18] LABS: PT Prothrombin Time 11.5 SECONDS (9.4-12.5); PTT, Activated Partial Thromb 31.4 SECONDS (24.3-36.9); Protime INR 1.03
[2024-12-05] MEDS ORDERED: ACETAMINOPHEN 325 MG TABLET ONE (08:18)
[2024-12-05 08:20] LABS: ALT/SGPT 24 U/L (13-56); AST/SGOT 20 U/L (15-37); Albumin 3.3 g/dL (3.4-5.0); Albumin/Globulin Ratio 0.9 (1.1-1.8); Alkaline Phosphatase 75 U/L (45-117); Anion Gap 11.4 mEq/L (5.0-15.0); BUN Blood Urea Nitrogen 8 mg/dL (7-18); Bicarbonate 20 mEq/L (21-32); Bilirubin Total 0.3 mg/dL (0.2-1.0); Globulin 3.8 g/dL (2.3-3.5); Glomerular Filtration Rate 77 ml/min (=/>90); Glucose Level 120 mg/dL (74-106); Potassium 3.4 mEq/L (3.5-5.1); Protein, Total 7.1 g/dL (6.4-8.2); Sodium Level 139 mEq/L (136-145)
[2024-12-05 08:21] LABS: Bilirubin Direct < 0.2 mg/dL (0-0.2); Bilirubin Indirect, Calculated 0.1 mg/dL (0.2-0.8)
--- NOTE | 2024-12-05 09:04 | RAD REPORT ---
EXAMINATION: ONE VIEW CHEST XR CLINICAL INDICATION: Female, 39 years old.,cough;Cough TECHNIQUE: Frontal chest projection is submitted. Examination is limited by patient positioning and t echnique. COMPARISON: No prior exam. FINDINGS: The lungs are well inflated and clear. No pneumothorax or sizable effusion. The heart is normal in s ize. Mediastinal contours are unremarkable. IMPRESSION: No acute intrathoracic abnormalities.
[2024-12-05 09:20] LABS: Barbiturates NEGATIVE (NEGATIVE); Benzodiazepines NEGATIVE (NEGATIVE); Cocaine NEGATIVE (NEGATIVE); METHAMPHETAM NEGATIVE (NEGATIVE); Methadone NEGATIVE (NEGATIVE); Opiates NEGATIVE (NEGATIVE); Phencyclidine NEGATIVE (NEGATIVE); THC Cannibis NEGATIVE (NEGATIVE)
[2024-12-05] MEDS ORDERED: POTASSIUM CL SA 10 MEQ TAB PO ONE (09:40)
[2024-12-07 16:00] VITALS: BP 103/70; TEMP 98.8; O2SAT 98
--- NOTE | 2024-12-09 12:12 | EKG ---
Test Date: 2024-12-05 Test Time: 07:47:24 Track Liner Operator: ALEXEI MEASUREMENT RESULTS: Intervals: Rate: 110 KS: 148 QRSD: 76 QT: 346 QTc: 468 [place]: P: 49 KS: 148 QRS: 9 T: 26 INTERPRETIVE STATEMENTS: Sinus tachycardia Otherwise normal ECG Compared to ECG 05/16/2024 15:11:40 No significant changes Electronically Signed On 12-09-24 12:08:56 FAMILY CONSULTANT by Erick Stratton
== END 2024-12-05 11:14 ==
LOC: ER 07:09
DX: R45.851 Suicidal ideations (principal); I10 Essential (primary) hypertension; E03.9 Hypothyroidism, unspecified; F17.210 Nicotine dependence, cigarettes, uncomplicated; Z88.8 Allergy status to other drugs, medicaments and biological substances
CPT/HCPCS: 93005; 85025; 81001; 80048; 36415; 81025; 85610; 80076; 85730; 80307; 71045; 99285; 80143; 80179; 82077; J7040